=== PATIENT | male | born 1955 | race African-American/Black ===

== ENCOUNTER 2016-10-31 03:16 | Emergency (ER) | payer MEDICARE ==
[~2016-10-31] VITALS: Ht 172.7 cm; Wt 89.1 kg
[~2016-10-31 03:16] MED LIST: DARVOCET N-100100 - OR; FLEXERIL PO; LIPITOR40 M1 PO; LOSARTAN POT50 MG PO; NIFEDIPINE30 MG PO; PERCOCET 5/325M1 TAB PO; PROVENTIL HFA IN; QVAR80 MCG IN; TYLENOL500 MG PO; ULTRAM50 M1 PO; [UNRECOGNIZED DRUG - OTHER]
[2016-10-31] MEDS ORDERED: HYZAAR1 TA2 PO (03:33)
[2016-10-31 04:23] LABS: HEMOGLOBIN 14.2 g/dl (14.0-18.0); IMMATURE GRANULOCYTES 0.3 % (0.0-1.0); MEAN CELL VOLUME 97.5 fL CALC (80.0-100.0); MEAN CORPUSCULAR HGB 32.2 pG CALC (26.0-32.0); NEUT# 4.76 thou/uL (1.82-7.42); RED BLOOD COUNT 4.41 mill/uL (4.70-6.10); RED CELL DISTRI WIDTH 12.6 % (11.5-15.5)
[2016-10-31 04:42] LABS: ALBUMIN 4.7 g/dL (3.2-5.0); ALKALINE PHOSPHATASE 57 u/l (38-126); ANION GAP 15 (6-22 (CALC)); BUN 13 mg/dL (9-20); BUN/CREATININE RATIO 14 (12-20 (CALC)); CALCIUM 9.3 mg/dL (8.4-10.2); CARBON DIOXIDE 28 mmol/l (22-30); CHLORIDE 106 mmol/l (95-108); GFR > 60 ML/MIN (>=60 (CALC)); GFR FOR AFR.AMER. > 60 ML/MIN (>=60 (CALC)); GLUCOSE 140 mg/dL (75-110); POTASSIUM 4.2 mmol/l (3.5-5.1); SGOT/AST 43 u/l (17-59); SGPT/ALT 44 u/l (21-72); SODIUM 145 mmol/l (137-146); TOTAL PROTEIN 8.3 g/dL (6.3-8.2)
[2016-10-31 04:54] LABS: INFLUENZA A NONE DETECTED (NONE DETECT); INFLUENZA B NONE DETECTED (NONE DETECT); MYOGLOBIN 31 ng/mL (0 - 121)
[2016-10-31] MEDS ORDERED: MEDDOSEPAK PO (05:42)
[2016-10-31] MEDS ORDERED: ZPAK PO (05:42)
[2016-10-31 06:15] VITALS: BP 163/83
== END 2016-10-31 06:15 | disposition home or self-care (01) ==
LOC: ED 03:16
DX: J44.1 Chronic obstructive pulmonary disease with (acute) exacerbation (principal); R05 Cough; F17.200 Nicotine dependence, unspecified, uncomplicated

== ENCOUNTER 2018-03-02 22:30 | Emergency (ER) | payer MEDICARE ==
[~2018-03-02] VITALS: Ht 172.7 cm; Wt 99.2 kg
[~2018-03-02 22:30] MED LIST changes: +HYZAAR1 TA2 PO; +MEDDOSEPAK PO; +ZPAK PO
[2018-03-02 23:32] LABS: HEMATOCRIT 36.9 % (39.0-50.0); HEMOGLOBIN 12.3 g/dl (14.0-18.0); IMMATURE GRANULOCYTES 0.4 % (0.0-5.0); MEAN CELL VOLUME 95.6 fL CALC (80.0-100.0); MEAN CORPUSCULAR HGB 31.9 pG CALC (26.0-32.0); MEAN CORPUSCULAR HGB CONC 33.3 g/L CALC (32.0-36.0); NEUT# 4.42 thou/uL (1.82-7.42); RED BLOOD COUNT 3.86 mill/uL (4.70-6.10); RED CELL DISTRI WIDTH 12.9 % (11.5-15.5); URINE BILIRUBIN - DIPSTICK NEGATIVE (NEGATIVE); URINE BLOOD DIPSTICK NEGATIVE (NEGATIVE); URINE CLARITY CLEAR; URINE COLOR YELLOW; URINE GLUCOSE - DIPSTICK NEGATIVE (NEGATIVE); URINE KETONE NEGATIVE (NEGATIVE); URINE LEUK ESTERASE NEGATIVE (NEGATIVE); URINE NITRITE - DIPSTICK NEGATIVE (Negative); URINE PH 5.5 (4.5-8.0); URINE PROTEIN - DIPSTICK NEGATIVE (NEG-TRACE); URINE UROBILINOGEN - DIPSTICK 0.2 E.U./dL (0.2)
[2018-03-02 23:40] LABS: ALBUMIN 4.4 g/dL (3.2-5.0); ALKALINE PHOSPHATASE 71 u/l (38-126); BILIRUBIN, TOTAL 0.7 mg/dL (0.0-1.4); BUN 22 mg/dL (8-23); BUN/CREATININE RATIO 17 (12-20 (CALC)); CARBON DIOXIDE 30 mmol/l (22-30); CHLORIDE 102 mmol/l (95-108); CREATININE 1.2 mg/dL (0.7-1.3); GFR > 60 ML/MIN (>=60 (CALC)); GFR FOR AFR.AMER. > 60 ML/MIN (>=60 (CALC)); SGOT/AST 45 u/l (19-48); SODIUM 143 mmol/l (137-146); TOTAL PROTEIN 8.2 g/dL (6.3-8.2)
[2018-03-02 23:45] LABS: ANION GAP 14 (6-22 (CALC)); POTASSIUM 3.3 mmol/l (3.5-5.1)
[2018-03-02 23:52] LABS: MYOGLOBIN 66 ng/mL (0 - 121)
[2018-03-03 00:29] VITALS: BP 117/78
== END 2018-03-03 00:29 | disposition home or self-care (01) ==
LOC: ED 22:30
PROVIDERS: Emergency Medicine
DX: R60.0 Localized edema (principal); I10 Essential (primary) hypertension; J44.9 Chronic obstructive pulmonary disease, unspecified; M54.9 Dorsalgia, unspecified

== ENCOUNTER 2018-11-07 13:17 | Emergency (ER) | payer MEDICARE ==
[~2018-11-07] VITALS: Ht 172.7 cm; Wt 102.0 kg
[~2018-11-07 13:17] MED LIST changes: -LIPITOR40 M1 PO; +LIPITOR80 M1 PO; -NIFEDIPINE30 MG PO; +NIFEDIPINE60 MG PO
[2018-11-07] MEDS ORDERED: LISINOPRIL40 MG PO (13:27)
[2018-11-07] MEDS ORDERED: METFORMIN500 M1 PO (13:28)
[2018-11-07] MEDS ORDERED: MICRO-K10 ME1 PO (13:29)
[2018-11-07] MEDS ORDERED: CENTRUM PO (13:29)
[2018-11-07] MEDS ORDERED: TRELEGY ELLIPTA1 AER IN (13:30)
[2018-11-07] MEDS ORDERED: BRIMONIDINE0.2 % OU (13:31)
[2018-11-07 13:59] LABS: URINE BILIRUBIN - DIPSTICK NEGATIVE (NEGATIVE); URINE BLOOD DIPSTICK NEGATIVE (NEGATIVE); URINE COLOR YELLOW; URINE GLUCOSE - DIPSTICK >=1000 mg/dL (NEGATIVE); URINE KETONE 15 mg/dL (NEGATIVE); URINE LEUK ESTERASE NEGATIVE (NEGATIVE); URINE NITRITE - DIPSTICK NEGATIVE (Negative); URINE PROTEIN - DIPSTICK NEGATIVE (NEG-TRACE); URINE SPECIFIC GRAVITY <=1.005; URINE UROBILINOGEN - DIPSTICK 0.2 E.U./dL (0.2)
[2018-11-07 14:00] LABS: IMMATURE GRANULOCYTES 0.1 % (0.0-5.0); MEAN CORPUSCULAR HGB 29.3 pG CALC (26.0-32.0); MEAN CORPUSCULAR HGB CONC 33.4 g/L CALC (32.0-36.0); NEUT# 4.4 thou/uL (1.82-7.42); RED BLOOD COUNT 5.19 mill/uL (4.70-6.10); RED CELL DISTRI WIDTH 12.9 % (11.5-15.5)
[2018-11-07 14:01] LABS: HEMATOCRIT 45.5 % (39.0-50.0); HEMOGLOBIN 15.2 g/dl (14.0-18.0); MEAN CELL VOLUME 87.7 fL CALC (80.0-100.0)
[2018-11-07 14:10] LABS: ALBUMIN 4.6 g/dL (3.2-5.0); BILIRUBIN, TOTAL 0.7 mg/dL (0.0-1.4); BUN 19 mg/dL (8-23); BUN/CREATININE RATIO 17 (12-20 (CALC)); CHLORIDE 98 mmol/l (95-108); CREATININE 1.1 mg/dL (0.7-1.3); GFR > 60 ML/MIN (>=60 (CALC)); GFR FOR AFR.AMER. > 60 ML/MIN (>=60 (CALC))
[2018-11-07 14:18] LABS: ALKALINE PHOSPHATASE 134 u/l (38-126); ANION GAP 20 (6-22 (CALC)); CARBON DIOXIDE 22 mmol/l (22-30); POTASSIUM 4.5 mmol/l (3.5-5.1); SGOT/AST 107 u/l (19-48); SODIUM 135 mmol/l (137-146)
[2018-11-07 14:22] LABS: MYOGLOBIN 72 ng/mL (0 - 121)
[2018-11-07 15:55] VITALS: BP 133/79
== END 2018-11-07 15:58 | disposition home or self-care (01) ==
LOC: ED 13:17
PROVIDERS: Emergency Medicine
DX: E11.65 Type 2 diabetes mellitus with hyperglycemia (principal); R74.8 Abnormal levels of other serum enzymes; I10 Essential (primary) hypertension; J44.9 Chronic obstructive pulmonary disease, unspecified; Z79.84 Long term (current) use of oral hypoglycemic drugs

== ENCOUNTER 2019-10-06 | Emergency (ER) | payer MEDICARE ==
[~2019-10-06] MED LIST changes: +BRIMONIDINE0.2 % OU; +CENTRUM PO; +LISINOPRIL40 MG PO; +METFORMIN500 M1 PO; +MICRO-K10 ME1 PO; +TRELEGY ELLIPTA1 AER IN
[2019-10-06 16:06] LABS: HEMATOCRIT 43.5 % (39.0-50.0); HEMOGLOBIN 14.2 g/dl (14.0-18.0); IMMATURE GRANULOCYTES 0.2 % (0.0-5.0); MEAN CORPUSCULAR HGB CONC 32.6 g/dL CAL (32.0-36.0); NEUT# 4.61 thou/uL (1.82-7.42); RED BLOOD COUNT 4.89 mill/uL (4.70-6.10); RED CELL DISTRI WIDTH 12.8 % (11.5-15.5)
[2019-10-06 16:25] LABS: ALBUMIN 4.5 g/dL (3.2-5.0); BILIRUBIN, TOTAL 0.6 mg/dL (0.0-1.4); BUN 26 mg/dL (8-23); BUN/CREATININE RATIO 21 (12-20 (CALC)); CARBON DIOXIDE 24 mmol/l (22-30); CHLORIDE 97 mmol/l (95-108); CREATININE 1.2 mg/dL (0.7-1.3); GFR > 60 ML/MIN (>=60 (CALC)); GFR FOR AFR.AMER. > 60 ML/MIN (>=60 (CALC)); LIPASE 116 u/l (23-300); POTASSIUM 4.9 mmol/l (3.5-5.1); SGOT/AST 51 u/l (19-48)
[2019-10-06 16:34] LABS: ALKALINE PHOSPHATASE 109 u/l (38-126); ANION GAP 16 (6-22 (CALC)); SODIUM 132 mmol/l (137-146)
[2019-10-06 17:35] LABS: URINE BILIRUBIN - DIPSTICK NEGATIVE (NEGATIVE); URINE BLOOD DIPSTICK NEGATIVE (NEGATIVE); URINE COLOR YELLOW; URINE GLUCOSE - DIPSTICK >=1000 mg/dL (NEGATIVE); URINE KETONE NEGATIVE (NEGATIVE); URINE LEUK ESTERASE NEGATIVE (NEGATIVE); URINE NITRITE - DIPSTICK NEGATIVE (Negative); URINE PH 5.5 (4.5-8.0); URINE PROTEIN - DIPSTICK NEGATIVE (NEG-TRACE); URINE SPECIFIC GRAVITY 1.025; URINE UROBILINOGEN - DIPSTICK 0.2 E.U./dL (0.2)
[2019-10-06] MEDS ORDERED: CYCLOBENZAPR5 MG PO (18:41)
== END 2019-10-06 18:49 | disposition home or self-care (01) ==
PROVIDERS: Family Medicine
DX: E11.65 Type 2 diabetes mellitus with hyperglycemia (principal); M54.5 Low back pain; I10 Essential (primary) hypertension; J44.9 Chronic obstructive pulmonary disease, unspecified; Z79.84 Long term (current) use of oral hypoglycemic drugs

== ENCOUNTER 2020-08-25 | Emergency (ER) | payer MEDICARE ==
[~2020-08-25] MED LIST changes: +CYCLOBENZAPR5 MG PO
[2020-08-25] MEDS ORDERED: PIOGLITAZONE HC30 MG PO (15:48)
[2020-08-25] MEDS ORDERED: LEVEMIR FL100 UNIT/M SC (15:49)
[2020-08-25] MEDS ORDERED: CYCLOBENZAPRINE10 MG PO (17:16)
[2020-08-25] MEDS ORDERED: EC-NAPROSYN375 MG PO (17:16)
== END 2020-08-25 17:36 | disposition home or self-care (01) ==
DX: M54.5 Low back pain (principal); G89.29 Other chronic pain; E11.9 Type 2 diabetes mellitus without complications; I10 Essential (primary) hypertension; J44.9 Chronic obstructive pulmonary disease, unspecified; E78.00 Pure hypercholesterolemia, unspecified; Z79.4 Long term (current) use of insulin

== ENCOUNTER 2020-09-24 19:15 | Emergency (ER) | payer MEDICARE ==
[~2020-09-24 19:15] MED LIST changes: +CYCLOBENZAPRINE10 MG PO; +EC-NAPROSYN375 MG PO; +LEVEMIR FL100 UNIT/M SC; +PIOGLITAZONE HC30 MG PO
[2020-09-24] MEDS ORDERED: LORTAB 1010 MG PO (20:05)
[2020-09-24] MEDS ORDERED: CYCLOBENZAPRINE10 MG PO (20:05)
[2020-09-24 21:02] VITALS: BP 168/70
[2020-09-24] MEDS ORDERED: NIFEDIPINE ER90 MG PO (22:04)
[2020-09-24] MEDS ORDERED: FISH OIL1000 MG PO (22:05)
[2020-09-24] MEDS ORDERED: ROSUVASTATIN CA40 MG PO (22:05)
== END 2020-09-24 21:02 | disposition home or self-care (01) ==
LOC: ED 19:15
DX: G89.29 Other chronic pain (principal); M47.816 Spondylosis without myelopathy or radiculopathy, lumbar region; E11.9 Type 2 diabetes mellitus without complications; I10 Essential (primary) hypertension; J44.9 Chronic obstructive pulmonary disease, unspecified; E78.00 Pure hypercholesterolemia, unspecified; Z79.4 Long term (current) use of insulin

== ENCOUNTER 2020-10-01 14:59 | Emergency (ER) | payer MEDICARE ==
[~2020-10-01] VITALS: Ht 172.7 cm; Wt 95.0 kg
[~2020-10-01 14:59] MED LIST changes: +FISH OIL1000 MG PO; +LORTAB 1010 MG PO; +NIFEDIPINE ER90 MG PO; +ROSUVASTATIN CA40 MG PO
[2020-10-01 15:26] VITALS: BP 139/81
== END 2020-10-01 15:47 | disposition home or self-care (01) ==
LOC: ED 14:59
DX: M54.5 Low back pain (principal); E11.9 Type 2 diabetes mellitus without complications; I25.10 Atherosclerotic heart disease of native coronary artery without angina pectoris; I10 Essential (primary) hypertension; J44.9 Chronic obstructive pulmonary disease, unspecified; E78.00 Pure hypercholesterolemia, unspecified; Z79.4 Long term (current) use of insulin; Z79.891 Long term (current) use of opiate analgesic

== ENCOUNTER 2022-02-23 15:37 | Emergency (ER) | payer MEDICARE ==
[~2022-02-23] VITALS: Ht 172.7 cm; Wt 102.0 kg
[2022-02-23] MEDS ORDERED: PERMETHRIN5 % EX (18:12)
[2022-02-23 18:23] VITALS: BP 110/80
== END 2022-02-23 18:23 | disposition home or self-care (01) ==
LOC: ED 15:37
DX: B86 Scabies (principal); E11.9 Type 2 diabetes mellitus without complications; I10 Essential (primary) hypertension; J44.9 Chronic obstructive pulmonary disease, unspecified; E78.00 Pure hypercholesterolemia, unspecified

== ENCOUNTER 2022-05-06 10:38 | Inpatient (IN) | payer MEDICARE ==
[2022-05-06] VITALS (26 sets, daily range): BP systolic 100–157; BP diastolic 52–90
[~2022-05-06] VITALS: Ht 172.7 cm; Wt 97.2 kg
[~2022-05-06 10:38] MED LIST changes: +PERMETHRIN5 % EX
[2022-05-06 11:54] LABS: ALBUMIN 4.6 g/dL (3.2-5.0); TOTAL PROTEIN 7.4 g/dL (6.3-8.2)
[2022-05-06 12:04] LABS: HEMATOCRIT 41.9 % (39.0-50.0); HEMOGLOBIN 14.6 g/dl (14.0-18.0); IMMATURE GRANULOCYTES 0.3 % (0.0-5.0); MEAN CELL VOLUME 91.3 fL CALC (80.0-100.0); MEAN CORPUSCULAR HGB 31.8 pG CALC (26.0-32.0); MEAN CORPUSCULAR HGB CONC 34.8 g/dL CAL (32.0-36.0); NEUT# 4.19 thou/uL (1.82-7.42); RED BLOOD COUNT 4.59 mill/uL (4.70-6.10); RED CELL DISTRI WIDTH 11.9 % (11.5-15.5)
[2022-05-06 12:09] LABS: BILIRUBIN, TOTAL 0.9 mg/dL (0.0-1.4); POTASSIUM 5.9 mmol/l (3.5-5.1)
[2022-05-06 12:24] LABS: URINE BILIRUBIN - DIPSTICK NEGATIVE (NEGATIVE); URINE BLOOD DIPSTICK NEGATIVE (NEGATIVE); URINE COLOR YELLOW; URINE GLUCOSE - DIPSTICK >=1000 mg/dL (NEGATIVE); URINE KETONE 15 mg/dL (NEGATIVE); URINE LEUK ESTERASE NEGATIVE (NEGATIVE); URINE PH 5.5 (4.5-8.0); URINE PROTEIN - DIPSTICK NEGATIVE (NEG-TRACE); URINE UROBILINOGEN - DIPSTICK 0.2 E.U./dL (0.2)
[2022-05-06 12:28] LABS: URINE NITRITE - DIPSTICK NEGATIVE (Negative)
[2022-05-06 17:58] LABS: ALBUMIN 4.4 g/dL (3.2-5.0); BILIRUBIN, TOTAL 0.6 mg/dL (0.0-1.4); CREATININE 1.8 mg/dL (0.7-1.3); TOTAL PROTEIN 7.3 g/dL (6.3-8.2)
[2022-05-06 17:59] LABS: POTASSIUM 4.1 mmol/l (3.5-5.1)
[2022-05-06 19:11] LABS: CREATININE 1.7 mg/dL (0.7-1.3); POTASSIUM 3.9 mmol/l (3.5-5.1)
[2022-05-07] VITALS (15 sets, daily range): BP systolic 104–132; BP diastolic 59–84
[2022-05-07 05:34] LABS: HEMATOCRIT 41.8 % (39.0-50.0); HEMOGLOBIN 14.5 g/dl (14.0-18.0); MEAN CELL VOLUME 91.5 fL CALC (80.0-100.0); MEAN CORPUSCULAR HGB 31.7 pG CALC (26.0-32.0); MEAN CORPUSCULAR HGB CONC 34.7 g/dL CAL (32.0-36.0); RED BLOOD COUNT 4.57 mill/uL (4.70-6.10); RED CELL DISTRI WIDTH 11.9 % (11.5-15.5)
[2022-05-07 06:18] LABS: ANION GAP 16 (6-22 (CALC)); BUN 37 mg/dL (8-23); BUN/CREATININE RATIO 26 (12-20 (CALC)); CARBON DIOXIDE 21 mmol/l (22-30); CHLORIDE 104 mmol/l (95-108); CREATININE 1.4 mg/dL (0.7-1.3); GFR FOR AFR.AMER. > 60 ML/MIN (>=60 (CALC)); GFR OTHER RACES 51 ML/MIN (>=60 (CALC)); MAGNESIUM 2.5 mg/dL (1.6-2.3); POTASSIUM 4.3 mmol/l (3.5-5.1); SODIUM 136 mmol/l (137-146)
[2022-05-08 03:57] VITALS: BP 121/75
[2022-05-08 03:59] VITALS: BP 104/50
[2022-05-08 06:10] LABS: HEMATOCRIT 42.1 % (39.0-50.0); HEMOGLOBIN 14.6 g/dl (14.0-18.0); MEAN CELL VOLUME 91.5 fL CALC (80.0-100.0); MEAN CORPUSCULAR HGB 31.7 pG CALC (26.0-32.0); MEAN CORPUSCULAR HGB CONC 34.7 g/dL CAL (32.0-36.0); RED BLOOD COUNT 4.6 mill/uL (4.70-6.10); RED CELL DISTRI WIDTH 11.9 % (11.5-15.5)
[2022-05-08 06:17] LABS: ANION GAP 16 (6-22 (CALC)); BUN 27 mg/dL (8-23); BUN/CREATININE RATIO 21 (12-20 (CALC)); CARBON DIOXIDE 23 mmol/l (22-30); CHLORIDE 103 mmol/l (95-108); CREATININE 1.3 mg/dL (0.7-1.3); GFR FOR AFR.AMER. > 60 ML/MIN (>=60 (CALC)); GFR OTHER RACES 55 ML/MIN (>=60 (CALC)); POTASSIUM 3.7 mmol/l (3.5-5.1); SODIUM 139 mmol/l (137-146)
[2022-05-08 11:15] VITALS: BP 115/71
== END 2022-05-08 13:13 | disposition home or self-care (01) | DRG 638 ==
LOC: ED 10:38 → ED-I 16:00 → ED 16:58 → ICU 16:59 → MS2 05-07 08:41
PROVIDERS: Emergency Medicine; ADMIT Internal Medicine; ATTEND Internal Medicine
DX: E11.10 Type 2 diabetes mellitus with ketoacidosis without coma (principal); N17.9 Acute kidney failure, unspecified; E87.5 Hyperkalemia; I10 Essential (primary) hypertension; J44.9 Chronic obstructive pulmonary disease, unspecified; E78.00 Pure hypercholesterolemia, unspecified; M54.9 Dorsalgia, unspecified; G89.29 Other chronic pain; F17.200 Nicotine dependence, unspecified, uncomplicated; T38.3X6A Underdosing of insulin and oral hypoglycemic [antidiabetic] drugs, initial encounter; Z79.4 Long term (current) use of insulin; Z91.128 Patient's intentional underdosing of medication regimen for other reason; Z91.119 Patient's noncompliance with dietary regimen due to unspecified reason

== ENCOUNTER 2022-11-01 10:21 | Emergency (ER) | payer MEDICARE ==
[2022-11-01] VITALS (7 sets, daily range): BP systolic 112–121; BP diastolic 55–71
[~2022-11-01] VITALS: Ht 172.7 cm; Wt 103.4 kg
[2022-11-01] MEDS ORDERED: TRELEGY ELLIPTA1 AER (10:47)
[2022-11-01] MEDS ORDERED: MAXZIDE-25MG1 COMBO PO (10:52)
[2022-11-01] MEDS ORDERED: ATORVASTATIN CA40 MG PO (10:52)
[2022-11-01] MEDS ORDERED: LEVOTHYROXIN100 MCG PO (10:52)
[2022-11-01] MEDS ORDERED: NIFEDIPINE90 M1 PO (10:53)
[2022-11-01] MEDS ORDERED: METFORMIN500 M2 PO (10:54)
[2022-11-01 11:08] LABS: BASO% 0.5 % (0-3); EOS% 3.2 % (0-8); HEMATOCRIT 38.5 % (39.0-50.0); IMMATURE GRANULOCYTES 0.4 % (0.0-5.0); LYMPH% 29.2 % (15-41); MEAN CORPUSCULAR HGB 31.8 pG CALC (26.0-32.0); MEAN CORPUSCULAR HGB CONC 30.9 g/dL CAL (32.0-36.0); MONO% 9.2 % (2-13); NEUT# 4.28 thou/uL (1.82-7.42); NEUT% 57.5 % (42-76); RED BLOOD COUNT 3.74 mill/uL (4.70-6.10); RED CELL DISTRI WIDTH 12.5 % (11.5-15.5)
[2022-11-01 11:10] LABS: HEMOGLOBIN 11.9 g/dl (14.0-18.0); MEAN CELL VOLUME 102.9 fL CALC (80.0-100.0)
[2022-11-01 11:27] LABS: ALBUMIN 4.4 g/dL (3.2-5.0); ALKALINE PHOSPHATASE 56 u/l (38-126); ANION GAP 16 (6-22 (CALC)); BUN 17 mg/dL (8-23); BUN/CREATININE RATIO 14 (12-20 (CALC)); CARBON DIOXIDE 21 mmol/l (22-30); CHLORIDE 108 mmol/l (95-108); CREATININE 1.2 mg/dL (0.7-1.3); GFR FOR AFR.AMER. > 60 ML/MIN (>=60 (CALC)); GFR OTHER RACES > 60 ML/MIN (>=60 (CALC)); POTASSIUM 4.2 mmol/l (3.5-5.1); SGOT/AST 38 u/l (19-48); SODIUM 140 mmol/l (137-146); TOTAL PROTEIN 7.3 g/dL (6.3-8.2)
[2022-11-01 11:29] LABS: BILIRUBIN, TOTAL 0.9 mg/dL (0.2-1.3)
[2022-11-01] MEDS ORDERED: PREDNISONE50 MG PO (13:32)
[2022-11-01] MEDS ORDERED: ZPAK PO (13:32)
== END 2022-11-01 13:46 | disposition home or self-care (01) ==
LOC: ED 10:21
PROVIDERS: Family Medicine
DX: J06.9 Acute upper respiratory infection, unspecified (principal); E78.00 Pure hypercholesterolemia, unspecified; I10 Essential (primary) hypertension; E11.9 Type 2 diabetes mellitus without complications; J44.9 Chronic obstructive pulmonary disease, unspecified; T48.6X6A Underdosing of antiasthmatics, initial encounter; Z91.128 Patient's intentional underdosing of medication regimen for other reason; Z79.84 Long term (current) use of oral hypoglycemic drugs; Z20.822 Contact with and (suspected) exposure to COVID-19

== ENCOUNTER 2023-01-11 15:38 | Emergency (ER) | payer MEDICARE ==
[~2023-01-11] VITALS: Ht 172.7 cm; Wt 117.3 kg
[~2023-01-11 15:38] MED LIST changes: +ATORVASTATIN CA40 MG PO; +LEVOTHYROXIN100 MCG PO; +MAXZIDE-25MG1 COMBO PO; +METFORMIN500 M2 PO; +NEURONTIN100 MG PO; +NIFEDIPINE90 M1 PO; +PREDNISONE50 MG PO; +TRELEGY ELLIPTA1 AER
[2023-01-11 15:46] VITALS: BP 122/74
[2023-01-11 16:00] VITALS: BP 130/113
[2023-01-11] MEDS ORDERED: MORPHINE SULFAT15 MG PO (16:13)
[2023-01-11 16:15] VITALS: BP 116/71
[2023-01-11 16:30] VITALS: BP 105/66
[2023-01-11 16:36] VITALS: BP 105/66
== END 2023-01-11 16:40 | disposition home or self-care (01) ==
LOC: ED 15:38
DX: M54.50 Low back pain, unspecified (principal); I10 Essential (primary) hypertension; E11.9 Type 2 diabetes mellitus without complications; J44.9 Chronic obstructive pulmonary disease, unspecified; E78.00 Pure hypercholesterolemia, unspecified; Z79.84 Long term (current) use of oral hypoglycemic drugs; Z79.4 Long term (current) use of insulin

== ENCOUNTER 2023-01-13 12:59 | Observation (INO) | payer MEDICARE ==
[2023-01-13] VITALS (7 sets, daily range): BP systolic 118–144; BP diastolic 58–94
[~2023-01-13] VITALS: Ht 172.7 cm; Wt 104.0 kg
[~2023-01-13 12:59] MED LIST changes: +MORPHINE SULFAT15 MG PO
--- NOTE | 2023-01-13 13:07 | NUR ---
Patient presents with new medications post d/c on Thursday. Flexeril, gabapentin and oxycodone (count of 5, 2nd RN Doris Howe verified count.) Medication given back to patient at request.
--- NOTE | 2023-01-13 13:30 | NUR ---
Patient to ED 12 via EMS. AAO, EMS IV in place, saline locked. Reports sudden increase in back pain that radiates to BLE. Recently d/c from [facility], states RXs provided do not help with the pain and make his "head hot."
[2023-01-13 13:38] LABS: BASO% 0.4 % (0-3); HEMOGLOBIN 11.5 g/dl (14.0-18.0); IMMATURE GRANULOCYTES 0.5 % (0.0-5.0); LYMPH% 16.5 % (15-41); MEAN CELL VOLUME 101.4 fL CALC (80.0-100.0); MEAN CORPUSCULAR HGB 31.5 pG CALC (26.0-32.0); MEAN CORPUSCULAR HGB CONC 31.1 g/dL CAL (32.0-36.0); NEUT# 8.1 thou/uL (1.82-7.42); NEUT% 73.6 % (42-76); RED BLOOD COUNT 3.65 mill/uL (4.70-6.10); RED CELL DISTRI WIDTH 12.7 % (11.5-15.5)
[2023-01-13 13:47] LABS: ALKALINE PHOSPHATASE 83 u/l (38-126); AMYLASE 56 u/l (30-110); BILIRUBIN, TOTAL 0.9 mg/dL (0.2-1.3); BUN 28 mg/dL (8-23); BUN/CREATININE RATIO 19 (12-20 (CALC)); CHLORIDE 106 mmol/l (95-108); CREATININE 1.4 mg/dL (0.7-1.3); GFR FOR AFR.AMER. > 60 ML/MIN (>=60 (CALC)); GFR OTHER RACES 51 ML/MIN (>=60 (CALC)); LIPASE 40 u/l (23-300); SGOT/AST 34 u/l (19-48); SODIUM 138 mmol/l (137-146); TOTAL PROTEIN 6.8 g/dL (6.3-8.2)
[2023-01-13 13:50] LABS: ANION GAP 12 (6-22 (CALC)); CARBON DIOXIDE 26 mmol/l (22-30); POTASSIUM 5.7 mmol/l (3.5-5.1)
--- NOTE | 2023-01-13 14:47 | NUR ---
PATIENT RESTING IN BED, EDUCATED ON CONT WAIT TIME. HE STATED UNDERSTANDING. NO ACUTE DISTRESS
--- NOTE | 2023-01-13 15:40 | NUR ---
Patient updated on POC. at bedside and agrees to POC. JULIO CESAR, ANGELICAS.
[2023-01-13 16:01] LABS: URINE BILIRUBIN - DIPSTICK Negative (NEGATIVE); URINE BLOOD DIPSTICK Negative (NEGATIVE); URINE GLUCOSE - DIPSTICK Negative (NEGATIVE); URINE KETONE Trace mg/dL (NEGATIVE); URINE LEUK ESTERASE Negative (NEGATIVE); URINE NITRITE - DIPSTICK Negative (Negative); URINE PH 5.5 (4.5-8.0); URINE PROTEIN - DIPSTICK Negative (NEG-TRACE); URINE SPECIFIC GRAVITY 1.015
[2023-01-13 16:16] LABS: URINE COLOR Yellow
--- NOTE | 2023-01-13 16:40 | NUR ---
Patient resting in bed with eyes closed. No complaints at this time. Call light in reach.
--- NOTE | 2023-01-13 17:10 | NUR ---
Patient resting in bed. at bedside. Reports pain increasing.
--- NOTE | 2023-01-13 18:41 | NUR ---
Patient in chair. Plan to admit when room available. Patient updated on POC, offers no new complaints at this time.
[2023-01-13 19:42] LABS: ALBUMIN 4.5 g/dL (3.2-5.0); BILIRUBIN, TOTAL 1.1 mg/dL (0.2-1.3); CREATININE 1.6 mg/dL (0.7-1.3); TOTAL PROTEIN 7.8 g/dL (6.3-8.2)
--- NOTE | 2023-01-13 19:46 | NUR ---
REPORT GIVEN TO HUANG SINGER AT THIS TIME ON MS2.
--- NOTE | 2023-01-13 20:40 | NUR ---
PT TRANSPORTED TO [facility] VIA WHEELCHAIR AT THIS TIME IN CARE OF NURSING IAP DISPLAYS ANALYST.
--- NOTE | 2023-01-13 22:00 | NUR ---
RECEIVED REPORT FROM ED NURSE. PT BROUGHT UP [employer]IA [employer]. PT ALERT AND ORIENTAED. PT HAS NO PAIN AT THIS TIME. ADVISED PT OF CHANGE OF SHIFT AND THE PLAN OF CARE. SAFETY PRECAUTIONS IN PLACE AND CALL LIGHT WITHIN REACH.
[2023-01-13 23:03] LABS: CREATININE 1.6 mg/dL (0.7-1.3)
[2023-01-13 23:09] LABS: POTASSIUM 5.8 mmol/l (3.5-5.1)
--- NOTE | 2023-01-13 23:28 | NUR ---
NURSE NOTIFIED OF PATIENT PULSE AND OXYGEN. PATIENT WAS PUT ON OXYGEN.
--- NOTE | 2023-01-14 04:00 | NUR ---
PT IS IN BED SLEEPING COMFORTABLY. PT SHOWS NO SIGNS OF PAIN OR DISTRESS AT THIS TIME. SAFETY PRECAUTIONS IN PLACE AND CALL LIGHT WITHIN REACH.
[2023-01-14 04:30] VITALS: BP 127/79
[2023-01-14 04:49] VITALS: BP 127/79
[2023-01-14 06:14] LABS: BASO% 0.3 % (0-3); EOS% 0.6 % (0-8); HEMATOCRIT 37.4 % (39.0-50.0); HEMOGLOBIN 11.6 g/dl (14.0-18.0); IMMATURE GRANULOCYTES 0.3 % (0.0-5.0); LYMPH% 19.3 % (15-41); MEAN CELL VOLUME 103.3 fL CALC (80.0-100.0); MONO% 11.9 % (2-13); NEUT# 7.31 thou/uL (1.82-7.42); NEUT% 67.6 % (42-76); RED BLOOD COUNT 3.62 mill/uL (4.70-6.10); RED CELL DISTRI WIDTH 12.8 % (11.5-15.5)
[2023-01-14 06:24] LABS: BILIRUBIN, TOTAL 1.2 mg/dL (0.2-1.3); CREATININE 1.6 mg/dL (0.7-1.3); MAGNESIUM 2.1 mg/dL (1.6-2.3); TOTAL PROTEIN 6.9 g/dL (6.3-8.2)
[2023-01-14 06:30] LABS: POTASSIUM 5.9 mmol/l (3.5-5.1)
--- NOTE | 2023-01-14 07:43 | NUR ---
PT RESTING IN LOW FOWLERS POSITION. A/OX HEART RHYHM ONTELE. RESPIRATIONS ON ROOM AIR. IV SITE NOTED. PT COMPLAINS OF PAIN PT STATED NEEDED PAIN MEDICATION PT TO BE MEDICATED PER EMAR. ALL SAFETY PRECAUTIONS IN PLACE WITH CALL LIGHT IN REACH.
[2023-01-14 07:49] VITALS: BP 145/89
--- NOTE | 2023-01-14 09:22 | NUR ---
MADE CONTACT WITH DR RAMESH IN REFERENCE TO A PHYSICIAN CONSULT AT 0922 HRS.
--- NOTE | 2023-01-14 12:17 | NUR ---
PT DENIES ADDITIONAL NEEDS AT THE TIME ALL SAFETY PRECAUTIONS IN PLACE.
[2023-01-14 15:40] VITALS: BP 141/86
--- NOTE | 2023-01-14 16:34 | NUR ---
PT COMPLETED SHOWER TELE WAS PLACED BACK ON PT . PT READING HIGH 120'S SUSTAINING. MD INFORMED. EKG ORDERED PER MD. NO NEW ORDERS WEREGIVEN TIME FRAME 1526. PT DENIES ADDITIONAL NEEDS AT THETIME ALL SAFETY PRECAUTIONS IN PLACE WITH CALL LIGHT INREACH.
[2023-01-14 17:28] VITALS: BP 140/86
[2023-01-14 18:17] LABS: ALBUMIN 3.9 g/dL (3.2-5.0); CREATININE 1.8 mg/dL (0.7-1.3)
[2023-01-14 19:07] VITALS: BP 128/82
--- NOTE | 2023-01-14 22:36 | NUR ---
received shift report at start of shift. pt lying in bed with hob elevated. alert and orinented x 3. pleasnt. iv fluids infusing on tele. safety precations maintained call light in reach
[2023-01-15 00:32] VITALS: BP 125/79
[2023-01-15 04:44] VITALS: BP 110/78
[2023-01-15 05:48] LABS: ALBUMIN 3.5 g/dL (3.2-5.0); CREATININE 1.5 mg/dL (0.7-1.3)
[2023-01-15 07:00] VITALS: BP 134/84
--- NOTE | 2023-01-15 07:14 | NUR ---
PT RESTING IN LOW FOWLERS POSITION. A/OX3 HEART RHYHTM ON TELE. RESPIRATIONS ON ROOM AIR PT USES 2LNC NEEDED. PT DENIES ADDITIONAL NEEDS AT THE TIEM ALL SAFETY PRECAUTIONS IN PLACE WITH CALL LIGHT INREACH.
[2023-01-15 08:01] VITALS: BP 144/82
[2023-01-15 08:02] VITALS: BP 144/82
--- NOTE | 2023-01-15 09:36 | NUR ---
UC STATED PT HR WAS IN THE 120-130'S . PT SAT UP IN BED TELE MONITOR ADJUSTED PT HR IN ST ABOVE 110. LODGE ATTENDANT SAILAJA NOTIFIED. ABOUT PT HR TRENDING HIGH WHEN PT AMBULATING OR ADJUSTS TO SIT ON SIDE OF BED.
--- NOTE | 2023-01-15 12:08 | NUR ---
PT ASSITED WITH REPOSITIONING IN BED SO PT CAN EAT LUNCH IN HIGH FOWLERS POSITION.
--- NOTE | 2023-01-15 14:04 | NUR ---
Discharge instructions given. Patient verbalizes understanding of same. Discharged in stable condition via Wheelchair to Home with staff. All belongings sent with pt. IV REMOVED.
--- NOTE | 2023-01-15 14:08 | NUR ---
Discharge instructions given. Patient verbalizes understanding of same. Discharged in stable condition via Wheelchair to Home with staff. All belongings sent with pt. IV REMOVED TELE REMOVED.
== END 2023-01-15 14:08 | disposition home or self-care (01) ==
LOC: ED 12:59 → ED-I 16:00 → ED 16:21 → MS2 16:22
PROVIDERS: Family Medicine; Internal Medicine; Internal Medicine Nephrology; Nurse Practitioner Family; ADMIT Student in an Organized Health Care Education/Training Program; ATTEND Student in an Organized Health Care Education/Training Program
DX: E87.5 Hyperkalemia (principal); N17.9 Acute kidney failure, unspecified; I95.9 Hypotension, unspecified; E86.9 Volume depletion, unspecified; T46.4X5A Adverse effect of angiotensin-converting-enzyme inhibitors, initial encounter; J44.9 Chronic obstructive pulmonary disease, unspecified; I12.9 Hypertensive chronic kidney disease with stage 1 through stage 4 chronic kidney disease, or unspecified chronic kidney disease; E11.22 Type 2 diabetes mellitus with diabetic chronic kidney disease; N18.31 Chronic kidney disease, stage 3a; D63.1 Anemia in chronic kidney disease; E78.00 Pure hypercholesterolemia, unspecified; E03.9 Hypothyroidism, unspecified; M54.50 Low back pain, unspecified; G89.29 Other chronic pain; F17.200 Nicotine dependence, unspecified, uncomplicated; Z79.4 Long term (current) use of insulin; Z79.84 Long term (current) use of oral hypoglycemic drugs
CPT/HCPCS: J1756

== ENCOUNTER 2023-01-17 11:00 | Emergency (ER) | payer MEDICARE ==
[2023-01-17] VITALS (20 sets, daily range): BP systolic 107–139; BP diastolic 68–86
[~2023-01-17] VITALS: Ht 172.7 cm; Wt 102.0 kg
[2023-01-17 13:49] LABS: BASO% 0.4 % (0-3); EOS% 1.3 % (0-8); HEMATOCRIT 35.9 % (39.0-50.0); HEMOGLOBIN 11.5 g/dl (14.0-18.0); IMMATURE GRANULOCYTES 0.6 % (0.0-5.0); LYMPH% 19.4 % (15-41); MONO% 9.1 % (2-13); NEUT# 6.22 thou/uL (1.82-7.42); NEUT% 69.2 % (42-76); RED BLOOD COUNT 3.59 mill/uL (4.70-6.10); RED CELL DISTRI WIDTH 12.6 % (11.5-15.5)
[2023-01-17 13:55] LABS: ALKALINE PHOSPHATASE 89 u/l (38-126); AMYLASE 56 u/l (30-110); ANION GAP 14 (6-22 (CALC)); BILIRUBIN, TOTAL 0.9 mg/dL (0.2-1.3); BUN 22 mg/dL (8-23); BUN/CREATININE RATIO 17 (12-20 (CALC)); CARBON DIOXIDE 27 mmol/l (22-30); CHLORIDE 101 mmol/l (95-108); CREATININE 1.3 mg/dL (0.7-1.3); GFR FOR AFR.AMER. > 60 ML/MIN (>=60 (CALC)); GFR OTHER RACES 55 ML/MIN (>=60 (CALC)); LIPASE 43 u/l (23-300); POTASSIUM 4.2 mmol/l (3.5-5.1); SGOT/AST 44 u/l (19-48); SODIUM 137 mmol/l (137-146); TOTAL PROTEIN 7.8 g/dL (6.3-8.2)
[2023-01-17 14:07] LABS: ALBUMIN 4.3 g/dL (3.2-5.0)
[2023-01-17 14:36] LABS: URINE BILIRUBIN - DIPSTICK Negative (NEGATIVE); URINE BLOOD DIPSTICK Negative (NEGATIVE); URINE GLUCOSE - DIPSTICK Negative (NEGATIVE); URINE KETONE Negative (NEGATIVE); URINE LEUK ESTERASE Negative (NEGATIVE); URINE NITRITE - DIPSTICK Negative (Negative); URINE PROTEIN - DIPSTICK Negative (NEG-TRACE); URINE SPECIFIC GRAVITY 1.015
[2023-01-17 14:42] LABS: URINE COLOR Yellow
== END 2023-01-17 17:18 | disposition home or self-care (01) ==
LOC: ED 11:00
PROVIDERS: Family Medicine
DX: M54.9 Dorsalgia, unspecified (principal); I10 Essential (primary) hypertension; E11.9 Type 2 diabetes mellitus without complications; J44.9 Chronic obstructive pulmonary disease, unspecified; E78.00 Pure hypercholesterolemia, unspecified; Z79.4 Long term (current) use of insulin; Z79.84 Long term (current) use of oral hypoglycemic drugs

== ENCOUNTER 2023-01-19 15:52 | Emergency (ER) | payer MEDICARE, MEDICAID ==
[2023-01-19] VITALS (7 sets, daily range): BP systolic 120–141; BP diastolic 71–89
[~2023-01-19] VITALS: Ht 172.7 cm; Wt 99.8 kg
[2023-01-19] MEDS ORDERED: ORPHENADRINE C100 MG PO (18:30)
== END 2023-01-19 18:51 | disposition home or self-care (01) ==
LOC: ED 15:52
DX: M62.830 Muscle spasm of back (principal); E11.9 Type 2 diabetes mellitus without complications; I10 Essential (primary) hypertension; J44.9 Chronic obstructive pulmonary disease, unspecified; E78.70 Disorder of bile acid and cholesterol metabolism, unspecified; Z79.84 Long term (current) use of oral hypoglycemic drugs; Z79.4 Long term (current) use of insulin

== ENCOUNTER 2023-01-23 18:42 | Emergency (ER) | payer MEDICARE, MEDICAID ==
[~2023-01-23] VITALS: Ht 172.7 cm; Wt 99.8 kg
[~2023-01-23 18:42] MED LIST changes: +ORPHENADRINE C100 MG PO
[2023-01-23 18:48] VITALS: BP 154/79
[2023-01-23 19:01] VITALS: BP 131/81
[2023-01-23 19:15] VITALS: BP 128/88
[2023-01-23] MEDS ORDERED: DECADRON4 MG PO (21:37)
[2023-01-23] MEDS ORDERED: CYCLOBENZAPRINE10 MG PO (21:38)
[2023-01-23] MEDS ORDERED: ULTRAM50 MG PO (21:38)
[2023-01-23 21:50] VITALS: BP 128/88
== END 2023-01-23 22:04 | disposition home or self-care (01) ==
LOC: ED 18:42
DX: M47.816 Spondylosis without myelopathy or radiculopathy, lumbar region (principal); G93.89 Other specified disorders of brain; I10 Essential (primary) hypertension; E11.9 Type 2 diabetes mellitus without complications; J44.9 Chronic obstructive pulmonary disease, unspecified; E78.00 Pure hypercholesterolemia, unspecified; Z79.4 Long term (current) use of insulin; Z79.84 Long term (current) use of oral hypoglycemic drugs

== ENCOUNTER 2023-01-27 17:06 | Emergency (ER) | payer MEDICARE, MEDICAID ==
[~2023-01-27] VITALS: Ht 172.7 cm; Wt 99.7 kg
[2023-01-27] VITALS (17 sets, daily range): BP systolic 105–143; BP diastolic 68–94
[~2023-01-27 17:06] MED LIST changes: +DECADRON4 MG PO; +ULTRAM50 MG PO
[2023-01-27 18:12] LABS: BASO% 0.2 % (0-3); EOS% 0.6 % (0-8); HEMATOCRIT 39.4 % (39.0-50.0); HEMOGLOBIN 12.9 g/dl (14.0-18.0); IMMATURE GRANULOCYTES 0.7 % (0.0-5.0); LYMPH% 15.2 % (15-41); MEAN CELL VOLUME 96.6 fL CALC (80.0-100.0); MEAN CORPUSCULAR HGB 31.6 pG CALC (26.0-32.0); MEAN CORPUSCULAR HGB CONC 32.7 g/dL CAL (32.0-36.0); MONO% 11.8 % (2-13); NEUT# 9.28 thou/uL (1.82-7.42); NEUT% 71.5 % (42-76); RED BLOOD COUNT 4.08 mill/uL (4.70-6.10)
[2023-01-27 18:28] LABS: ALBUMIN 4.7 g/dL (3.2-5.0); ALKALINE PHOSPHATASE 120 u/l (38-126); ANION GAP 19 (6-22 (CALC)); BILIRUBIN, TOTAL 1.2 mg/dL (0.2-1.3); CHLORIDE 99 mmol/l (95-108); CREATININE 1.9 mg/dL (0.7-1.3); GFR FOR AFR.AMER. 43 ML/MIN (>=60 (CALC)); GFR OTHER RACES 36 ML/MIN (>=60 (CALC)); POTASSIUM 4.6 mmol/l (3.5-5.1); SGOT/AST 46 u/l (19-48); SODIUM 135 mmol/l (137-146); TOTAL PROTEIN 8.5 g/dL (6.3-8.2)
[2023-01-27 18:32] LABS: BUN 48 mg/dL (8-23); BUN/CREATININE RATIO 25 (12-20 (CALC)); CARBON DIOXIDE 22 mmol/l (22-30)
[2023-01-27] MEDS ORDERED: CYCLOBENZAPRINE10 MG PO (19:55)
[2023-01-27] MEDS ORDERED: TRAMADOL HYDROC50 M1 PO (19:55)
== END 2023-01-27 22:15 | disposition home or self-care (01) ==
LOC: ED 17:06
PROVIDERS: Nurse Practitioner
DX: M54.50 Low back pain, unspecified (principal); G89.29 Other chronic pain; E11.9 Type 2 diabetes mellitus without complications; I10 Essential (primary) hypertension; J44.9 Chronic obstructive pulmonary disease, unspecified; E78.00 Pure hypercholesterolemia, unspecified; Z79.84 Long term (current) use of oral hypoglycemic drugs; Z79.4 Long term (current) use of insulin

== ENCOUNTER 2023-02-26 01:57 | Emergency (ER) | payer MEDICARE, MEDICAID ==
[2023-02-26] VITALS (60 sets, daily range): BP systolic 55–268; BP diastolic 19–218
[~2023-02-26 01:57] MED LIST changes: +TRAMADOL HYDROC50 M1 PO
[2023-02-26 02:52] LABS: ALKALINE PHOSPHATASE 131 u/l (38-126); BASO% 0.2 % (0-3); BILIRUBIN, TOTAL 1.4 mg/dL (0.2-1.3); BUN 62 mg/dL (8-23); CHLORIDE 94 mmol/l (95-108); EOS% 0.1 % (0-8); ETHYL ALCOHOL 0 mg/dl (0-30); HEMATOCRIT 29.9 % (39.0-50.0); HEMOGLOBIN 8.7 g/dl (14.0-18.0); IMMATURE GRANULOCYTES 9.7 % (0.0-5.0); LYMPH% 23.5 % (15-41); MEAN CELL VOLUME 107.6 fL CALC (80.0-100.0); MEAN CORPUSCULAR HGB 31.3 pG CALC (26.0-32.0); MEAN CORPUSCULAR HGB CONC 29.1 g/dL CAL (32.0-36.0); MONO% 8.9 % (2-13); NEUT# 13.23 thou/uL (1.82-7.42); NEUT% 57.6 % (42-76); RED BLOOD COUNT 2.78 mill/uL (4.70-6.10); RED CELL DISTRI WIDTH 14.7 % (11.5-15.5); SODIUM 130 mmol/l (137-146); TOTAL PROTEIN 6.9 g/dL (6.3-8.2)
[2023-02-26 02:54] LABS: ACT PARTIAL THROMBO TIME 44.6 SECONDS (20.0-32.5); INTERNATIONAL NORMALIZED RATIO 1.4 RATIO (0.7-1.3); PROTHROMBIN TIME 13.1 SECONDS (9.0-12.5)
[2023-02-26 03:01] LABS: BUN/CREATININE RATIO 16 (12-20 (CALC)); CREATININE 3.8 mg/dL (0.7-1.3); GFR FOR AFR.AMER. 19 ML/MIN (>=60 (CALC)); GFR OTHER RACES 16 ML/MIN (>=60 (CALC))
[2023-02-26 03:02] LABS: ALBUMIN 3.7 g/dL (3.2-5.0); ANION GAP 38 (6-22 (CALC)); CARBON DIOXIDE < 5 mmol/l (22-30); SGOT/AST 974 u/l (19-48)
[2023-02-26 03:06] LABS: URINE BILIRUBIN - DIPSTICK Negative (NEGATIVE); URINE BLOOD DIPSTICK Trace-lysed (NEGATIVE); URINE COLOR Yellow; URINE GLUCOSE - DIPSTICK Negative (NEGATIVE); URINE KETONE Trace mg/dL (NEGATIVE); URINE LEUK ESTERASE Negative (NEGATIVE); URINE NITRITE - DIPSTICK Negative (Negative); URINE PH 5.5 (4.5-8.0); URINE PROTEIN - DIPSTICK 100 mg/dL (NEG-TRACE); URINE UROBILINOGEN - DIPSTICK 0.2 E.U./dL (0.2)
[2023-02-26 03:09] LABS: POTASSIUM 6.8 mmol/l (3.5-5.1)
[2023-02-26 03:14] LABS: URINE AMORPH SEDIMENT FEW hpf (NONE-FER); URINE BACTERIA FEW hpf; URINE MUCUS FEW hpf (NONE-FEW); URINE SQUAMOUS EPITHELIAL CELL FEW EPI/hpf (0-FEW)
[2023-02-26] MEDS ORDERED: OXYCODONE5 M1 PO (05:05)
== END 2023-02-26 06:45 ==
LOC: ED 01:57
PROVIDERS: Emergency Medicine
PROC: 5A12012 Performance of Cardiac Output, Single, Manual (ICD-10-PCS; principal; 2023-02-26)
PROC: 0BH17EZ Insertion of Endotracheal Airway into Trachea, Via Natural or Artificial Opening (ICD-10-PCS; 2023-02-26)
PROC: 5A1935Z Respiratory Ventilation, Less than 24 Consecutive Hours (ICD-10-PCS; 2023-02-26)
PROC: 0T9B70Z Drainage of Bladder with Drainage Device, Via Natural or Artificial Opening (ICD-10-PCS; 2023-02-26)
PROC: 06HY33Z Insertion of Infusion Device into Lower Vein, Percutaneous Approach (ICD-10-PCS; 2023-02-26)
PROC: 3E043XZ Introduction of Vasopressor into Central Vein, Percutaneous Approach (ICD-10-PCS; 2023-02-26)
DX: I46.9 Cardiac arrest, cause unspecified (principal); J69.0 Pneumonitis due to inhalation of food and vomit; C34.90 Malignant neoplasm of unspecified part of unspecified bronchus or lung; C79.31 Secondary malignant neoplasm of brain; C79.9 Secondary malignant neoplasm of unspecified site; E87.5 Hyperkalemia; E11.9 Type 2 diabetes mellitus without complications; I10 Essential (primary) hypertension; J44.9 Chronic obstructive pulmonary disease, unspecified; E78.00 Pure hypercholesterolemia, unspecified; F17.200 Nicotine dependence, unspecified, uncomplicated; Z79.84 Long term (current) use of oral hypoglycemic drugs; Z79.4 Long term (current) use of insulin; Z92.21 Personal history of antineoplastic chemotherapy; Z20.822 Contact with and (suspected) exposure to COVID-19
CPT/HCPCS: J1953